=== PATIENT | female | born 1990 | race Caucasian/White ===

== ENCOUNTER → 2016-02-13 | Outpatient (CLI) | payer BC ==
[2016-02-13 12:58] LABS: CH 32.7; CHCM 35.1; HCT 34.3 % (34.0-46.0); HDW 2.86; HGB 11.9 gm/dL (11.4-16.0); MCH 32.5 pg (25.0-35.0); MCHC 34.6 g/dL (31.0-37.0); MCV 93.7 fL (80.0-100.0); Mean Platelet Volume 7.1; RBC 3.66 m/uL (3.80-5.40); RDW 12.9 % (11.5-15.5); WBC 5.8 k/uL (3.8-10.6)
[2016-02-13 13:05] LABS: Glucose 80 mg/dL (74-99); Non-African American GFR(MDRD) >60 (>60 ml/min/1.73 sqM)
[2016-02-13 13:37] LABS: Hepatitis B Surface Ag Index 0.06
[2016-02-13 21:07] LABS: Treponemal Ab Non-Reactive (Non-Reactive)
[2016-02-14 07:25] LABS: HIV-1/HIV-2 Ab Screen NONREAC (NON REAC)
== END | disposition home or self-care (01) ==
LOC: LABWHC1 12:12
PROVIDERS: ATTEND Obstetrics & Gynecology
DX: Z34.92 Encounter for supervision of normal pregnancy, unspecified, second trimester (principal); Z3A.00 Weeks of gestation of pregnancy not specified
CPT/HCPCS: 36415; 82105; 82565; 82677; 82947; 84702; 85027; 86336; 86762; 86777; 86778; 86780; 86850; 86900; 86901; 87340; 87389

== ENCOUNTER → 2016-04-06 | Outpatient (CLI) | payer BC ==
[2016-04-06 09:57] LABS: Appearance,Urine Clear (Clear); Bilirubin,Urine Negative (Negative); Glucose,Urine (UA) 3+ (Negative); Ketones,Urine Negative (Negative); Leukocyte Esterase,Urine Trace (Negative); Mucus,Urine Rare /hpf; Nitrite,Urine Negative (Negative); PH, Urine 7.5 (5.0-8.0); Particle Count 3829; Protein,Urine Trace (Negative); RBC,Urine 1 /hpf (0-5); Specific Gravity,Urine 1.019 (1.001-1.035); Squamous Epithelial Cell,Urine 2 /hpf (0-4); UA Billing (MACRO vs. MICRO) MICRO; WBC,Urine 3 /hpf (0-5)
[2016-04-06 10:30] LABS: CH 32.9; HCT 35.3 % (34.0-46.0); HDW 2.95; HGB 11.7 gm/dL (11.4-16.0); MCH 32.1 pg (25.0-35.0); MCV 97.3 fL (80.0-100.0); Mean Platelet Volume 7.6; RBC 3.63 m/uL (3.80-5.40); WBC 7.6 k/uL (3.8-10.6)
== END | disposition home or self-care (01) ==
LOC: LABWHC1 08:21
PROVIDERS: ATTEND Obstetrics & Gynecology
DX: Z34.82 Encounter for supervision of other normal pregnancy, second trimester (principal); Z3A.00 Weeks of gestation of pregnancy not specified
CPT/HCPCS: 36415; 81001; 82950; 85027

== ENCOUNTER → 2016-04-09 | Outpatient (CLI) | payer BC ==
[2016-04-09 12:44] LABS: Glucose 3 Hour, Gest 105 mg/dL
== END | disposition home or self-care (01) ==
LOC: LABWHC1 07:53
PROVIDERS: ATTEND Obstetrics & Gynecology
DX: O99.810 Abnormal glucose complicating pregnancy (principal); Z3A.00 Weeks of gestation of pregnancy not specified
CPT/HCPCS: 36415; 82951; 82952

== ENCOUNTER 2016-07-09 05:52 | Inpatient (IN) | payer BC ==
[2016-07-09] MEDS ORDERED: METHYLERGONOVINE 0.2 MG/ML 1 ML AMP IM PRN (06:03)
[2016-07-09] MEDS ORDERED: LIDOCAINE 1% (PF) 10 MG/ML (30 ML SDV) SQ PRN (06:03)
[2016-07-09] MEDS ORDERED: CARBOPROST TROMETHAMINE 250 MCG/ML 1 ML AMP IM PRN (06:03)
[2016-07-09] MEDS ORDERED: OXYTOCIN 10 UNIT/ML 1 ML VIAL IM PRN (06:03)
[2016-07-09] MEDS ORDERED: TERBUTALINE 1 MG/ML VIAL SQ PRN (06:03)
[2016-07-09] MEDS: LACTATED RINGERS 1,000 ML IV SCH ×2 (06:07→12:41)
[2016-07-09] MEDS ORDERED: OXYTOCIN 20 UNITS/1000 ML NS 1,000 ML IV SCH (06:15)
[2016-07-09 06:21] LABS: Basophils % (A) 0 %; CH 32.4; CHCM 34.3; Eosinophils # (A) 0.1 k/uL (0-0.7); Eosinophils % (A) 2 %; HCT 33.8 % (34.0-46.0); HDW 3.37; HGB 11.5 gm/dL (11.4-16.0); Luc # (Auto) 0.19; Luc % (Auto) 2; Lymphocytes # (A) 1.5 k/uL (1.0-4.8); Lymphocytes % (A) 19 %; MCH 32.3 pg (25.0-35.0); MCHC 33.9 g/dL (31.0-37.0); MCV 95.2 fL (80.0-100.0); Mean Platelet Volume 8.1; Monocytes # (A) 0.4 k/uL (0-1.0); Monocytes % (A) 5 %; Neutrophils # (A) 5.7 k/uL (1.3-7.7); Neutrophils % (A) 72 %; RBC 3.55 m/uL (3.80-5.40); RDW 13.5 % (11.5-15.5); WBC 7.9 k/uL (3.8-10.6); WBC (Perox) 8.17
[2016-07-09 06:22] VITALS: RESP 16
[2016-07-09] MEDS ORDERED: BUTORPHANOL 1 MG/ML 1 ML VIAL IV PRN (09:10)
[2016-07-09] MEDS ORDERED: SODIUM CHLORIDE 0.9% 100 ML BAG ONE (13:00)
[2016-07-09] MEDS ORDERED: BUPIVACAINE (PF) 0.25% 30 ML VIAL ONE (13:00)
[2016-07-09] MEDS ORDERED: fentaNYL (PF) 50 MCG/ML 5 ML AMP ONE (13:00)
[2016-07-09] MEDS ORDERED: BUPIVACAINE (PF) 0.25% 25 ML, fentaNYL (PF) 200 MCG in SODIUM CHLORIDE 0.9% 71 ML EPIDURAL ONE (13:20)
[2016-07-09] MEDS ORDERED: BENZOCAINE SPRAY 57GM TOPICAL PRN (16:22)
[2016-07-09] MEDS ORDERED: ACETAMINOPHEN TAB 325 MG TAB PO PRN (16:22)
[2016-07-09] MEDS ORDERED: SIMETHICONE 80 MG CHEWABLE PO PRN (16:22)
[2016-07-09] MEDS ORDERED: diphenhydrAMINE 50 MG CAP PO PRN (16:22)
[2016-07-09] MEDS ORDERED: LANOLIN CREAM 5 GM TUBE TOPICAL PRN (16:22)
[2016-07-09] MEDS ORDERED: WITCH HAZEL 1 EACH MED..PAD TOPICAL PRN (16:22)
[2016-07-09] MEDS ORDERED: diphenhydrAMINE 50 MG/ML 1 ML VIAL IVP PRN ×2 (16:22)
[2016-07-09] MEDS ORDERED: IBUPROFEN 600 MG TAB PO PRN (16:22)
[2016-07-09] MEDS ORDERED: ZOLPIDEM 5 MG TAB PO PRN (16:22)
[2016-07-09] MEDS ORDERED: diphenhydrAMINE 25 MG CAP PO PRN (16:22)
[2016-07-09] MEDS ORDERED: Acetaminophen-Codeine 300-30mg TAB PO PRN ×2 (16:22)
--- NOTE | 2016-07-09 19:27 | P.HPOB ---
History of Present Illness H&P Date: 07/09/16 Chief Complaint: Intrauterine at 39 weeks gestation: Induction of labor Mala is a 26-year-old at 39 weeks gestation arise for induction of labor. Her course was generally unremarkable she is feeling well at this time. Pertinent labs did include A+ blood type rubella was low positive hepatitis B surface antigen and RPR were both negative and quad screen was also negative. On physical exam her vital signs are stable and she is afebrile. Heart is regular, lungs are clear, extremities are without pain. Pelvic exam shows her to be 2 cm dilated 80% effaced -3 station. Artificial rupture membranes was performed clear fluid is noted. heart tones 130s and reactive. She is masood now every 3-5 minutes on Pitocin. She plans epidural for analgesia. Assessment intrauterine at term. Plan expect spontaneous vaginal delivery. Past Medical History Past Medical History: No Reported History History of Any Multi-Drug Resistant Organisms: None Reported Past Surgical History: No Surgical Hx Reported Past Anesthesia/Blood Transfusion Reactions: No Reported Reaction Past Psychological History: No Psychological Hx Reported Smoking Status: Current every day smoker Past Alcohol Use History: None Reported Past Drug Use History: None Reported, Marijuana - Past Family History Mother Family Medical History: Cancer, Hypertension Medications and Allergies Home Medications Medication Instructions Recorded Confirmed Type No Known Home Medications [No 07/09/16 07/09/16 History Known Home Medications] Allergies Allergy/AdvReac Type Severity Reaction Status Date / Time No Known Allergies Allergy Verified 07/09/16 06:02 Exam Osteopathic Statement: *. No significant issues noted on an osteopathic structural exam other than those noted in the History and Physical/Consult. - Vital Signs Vital signs: Vital Signs Temp Pulse Resp BP 07/09/16 17:09 67 16 111/55 07/09/16 16:39 68 16 102/55 07/09/16 16:09 65 16 103/57 07/09/16 15:54 70 16 130/62 07/09/16 15:39 59 L 16 115/57 07/09/16 15:24 64 16 95/56 07/09/16 15:09 97.2 F L 62 16 103/58 07/09/16 06:17 96.7 F L 65 16 150/72 Intake and Output 07/09/16 07/09/16 07/09/16 06:59 14:59 22:59 Intake Total 1000 950 Output Total 150 Balance 1000 800 Intake: IV 1000 950 Lactated Ringers 1,000 ml 1000 950 @ 125 mls/hr IV .Q8H PATRICK Rx#:[id number] Output: Estimated Blood Loss 150 Other: # Voids 1 Weight 66.678 kg Results Result Diagrams: 07/09/16 06:00 Abnormal Lab Results - Last 24 Hours (Table) 07/09/16 Range/Units 06:00 RBC 3.55 L (3.80-5.40) m/uL Hct 33.8 L (34.0-46.0) %
--- NOTE | 2016-07-09 19:29 | P.PROBDLV ---
Vaginal Delivery Note - . Vaginal Delivery Note: Mala progressed to complete and pushing with spontaneous vaginal delivery of a viable female over an intact perineum. Falling deliver the head anterior and posterior shoulders were delivered with gentle downward upper traction followed by the remainder the baby. Baby was then bulb suctioned of mouth and nares and placed on mother's abdomen and the umbilical cord allowed to pulsate for approximately 45 seconds before clamping and cutting. Once clamped cut and nursery personnel was present to assume care. Placenta was then delivered intact and Pitocin was added to the IV. scores were 8 and 9 at one and 5 minutes respectively and weight was 6 lbs. 5 oz. Both mother and baby are stable following delivery.
[2016-07-09] MEDS: SENNOSIDES-DOCUSATE SODIUM 1 EACH TAB PO SCH ×2 (21:57→23:52)
[2016-07-10] MEDS ORDERED: MEASLES-MUMPS-RUBELLA VACC/PF 12,500 UNIT/0.5 ML VIAL SQ ONE (09:48)
--- NOTE | 2016-07-10 11:10 | P.DS ---
Providers Date of admission: 07/09/16 05:52 Expected date of discharge: 07/10/16 Attending physician: Elie Cottrell Primary care physician: Stated None Hospital Course: Mala is doing very well day 1. She is involuting, voiding and she is tolerating her diet. She was placed. She is requesting discharge home today. She requests nothing for pain. She'll follow me in 6 weeks. Otherwise her vital signs are stable and afebrile. Heart regular, lungs clear, extremities without pain. Abdomen is soft uterus is firm and lochia is reported be light. Assessment day 1. Plan discharged home follow up in 6 weeks. Discharge instructions are otherwise thoroughly reviewed and all questions are answered for her prior to discharge. Patient Condition at Discharge: Good Plan - Discharge Summary New Discharge Prescriptions: No Action No Known Home Medications [No Known Home Medications] Discharge Medication List No Known Home Medications [No Known Home Medications] 07/09/16 [History] Follow up Appointment(s)/Referral(s): Elie Cottrell DO [Doctor of Osteopathic Medicine] - 6 Weeks Activity/Diet/Wound Care/Special Instructions: No heavy lifting, limit stairs and driving and pelvic rest. If any high temperatures, heavy bleeding, or severe pain call my office Discharge Disposition: HOME SELF-CARE
[2016-07-10 12:35] VITALS: BP 111/57; PULSE 75; TEMP 98.2
[2016-07-10] MEDS: SENNOSIDES-DOCUSATE SODIUM 1 EACH TAB PO SCH (13:52)
== END 2016-07-10 15:30 | disposition home or self-care (01) | DRG 775 ==
LOC: 4FBP 05:52
PROVIDERS: ADMIT Obstetrics & Gynecology; ATTEND Obstetrics & Gynecology
PROC: 10907ZC Drainage of Amniotic Fluid, Therapeutic from Products of Conception, Via Natural or Artificial Opening (ICD-10-PCS; principal; 2016-07-09)
PROC: 10E0XZZ Delivery of Products of Conception, External Approach (ICD-10-PCS; principal; 2016-07-09)
PROC: 00HU33Z Insertion of Infusion Device into Spinal Canal, Percutaneous Approach (ICD-10-PCS; principal; 2016-07-09)
PROC: 3E033VJ Introduction of Other Hormone into Peripheral Vein, Percutaneous Approach (ICD-10-PCS; principal; 2016-07-09)
PROC: 3E0R3CZ (ICD-10-PCS; principal; 2016-07-09)
DX: O99.334 Smoking (tobacco) complicating childbirth (principal); F17.200 Nicotine dependence, unspecified, uncomplicated; Z37.0 Single live birth; Z3A.39 39 weeks gestation of pregnancy
CPT/HCPCS: 85025; 88307; 90471; 90707